=== PATIENT | female | born 1995 | race Caucasian/White ===

== ENCOUNTER 2016-11-12 11:42 | Emergency (ER) | payer OTHER ==
[~2016-11-12] VITALS: Ht 170.2 cm; Wt 49.3 kg
[2016-11-12] MEDS ORDERED: BUSPAR10 MG PO (12:24)
[2016-11-12 13:12] LABS: HEMATOCRIT 42.2 % (36.0-46.0); MCH 27.9 PG (29.0-34.0); MCHC 32.9 G/DL (30.0-36.0); MCV 84.6 FL (83-99); MEAN PLAT.VOLUME 10.6 uM^3 (9.5-12.4); PLATELET COUNT 262 K/uL (156-360); RBC DIS.WIDTH-SD 39.9 % (39-53); RED BLOOD COUNT 4.99 M/uL (3.80-5.20)
[2016-11-12 13:18] LABS: CHLORIDE 109 mEq/L (99-109); POTASSIUM 4.5 mEq/L (3.7-5.4); SODIUM 142 mEq/L (136-147)
[2016-11-12 13:19] LABS: GLUCOSE 99 mg/dL (70-99)
[2016-11-12 13:21] LABS: ANION GAP 13 MEQ/L (2-14)
[2016-11-12 13:23] LABS: GFR ESTIMATE (CALCULATED) > 59 mL/min/
[2016-11-12 13:24] LABS: UREA NITROGEN (BUN) 16 mg/dL (9-23)
[2016-11-12 13:34] LABS: QUANTITATIVE HCG < 4.0 MIU/ML
[2016-11-12] MEDS ORDERED: NAPROXEN500 MG PO (13:41)
[2016-11-12 14:11] VITALS: BP 100/60
== END 2016-11-12 14:12 | disposition home or self-care (01) ==
LOC: EME 11:42
PROVIDERS: Physician Assistant
DX: R07.9 Chest pain, unspecified (principal); F17.200 Nicotine dependence, unspecified, uncomplicated
CPT/HCPCS: 71020; 80048; 84702; 85027; 93005; 99281; 99283